=== PATIENT | female | born 1985 | race Two or more races ===

== ENCOUNTER 2016-04-19 09:08 | Emergency (ER) | payer OTHER ==
[~2016-04-19] VITALS: Ht 170.2 cm; Wt 77.1 kg
[2016-04-19 09:25] VITALS: BP 109/65
[2016-04-19 10:33] LABS: BILIRUBIN,URINE NEGATIVE (NEG); GLUCOSE,URINE NEGATIVE (NEG); NITRITE,URINE NEGATIVE (NEG); PROTEIN,URINE NEGATIVE (NEG-TRACE); UROBILINOGEN,URINE 0.2 mg/dL (0.2 mg/dL)
[2016-04-19 10:52] LABS: BACTERIA,URINE FEW /HPF (0-FEW); SQUAMOUS EPITHELIAL CELL,UR FEW /LPF; WBC,URINE >40 /HPF (0-4)
--- NOTE | 2016-04-19 11:01 | RAD ---
Obstetrical ultrasound, 04/19/2016: History: , vaginal bleeding Transabdominal and transvaginal scans were obtained. The uterus contains a gestational sac. It contains a pole demonstrating a crown-rump length of 1.8 cm. This suggests a gestational age of 8 weeks and 2 days. heart motion is not present. This is abnormal with a pole of this length and indicates a nonviable . No significant subchorionic hemorrhage is seen. The ovaries are visualized and are of normal size. No adnexal mass is evident. No free fluid is identified in the pelvis. IMPRESSION: Nonviable early intrauterine as described above.
--- NOTE | 2016-04-19 11:15 | PHYS DOC ---
Past Medical History Past Medical History: No Pertinent History Past Surgical History: Tonsillectomy, Other Additional Past Surgical Histo: LEFT HIP DISPLASIA Additional Information: 5 CIGARETTES PER DAY Alcohol Use: None Drug Use: None Adult General Chief Complaint Chief Complaint: VAGINAL BLEEDING HPI HPI Patient is a 30 year old female who presents with vaginal bleeding for 2 days. She states that the bleeding is less than usual menstrual cycle. She's had lower abdominal pressure and urinary frequency without dysuria. She's had a white, creamy vaginal discharge with an odor. She denies nausea, vomiting, diarrhea, constipation, fevers, or back pain. She is currently with LMP 01/20/16. She is Ab1. She does not have a primary care doctor or an OB. Review of Systems Review of Systems Constitutional: Denies fever or chills. [] GI: Denies nausea, vomiting, bloody stools or diarrhea. Lower abdominal pressure. : Denies dysuria, hematuria. Reports urinary frequency, vaginal discharge, and vaginal bleeding. Musculoskeletal: Denies back pain or joint pain. [] Integument: Denies rash or skin lesions. [] Neurologic: Denies headache, focal weakness or sensory changes. [] All systems reviewed and negative unless otherwise stated in the HPI. Allergies Allergies Allergies Coded Allergies Type Severity Reaction Last Updated Verified No Known Drug Allergies 04/19/16 No Physical Exam Physical Exam Constitutional: Well developed, well nourished, no acute distress, non-toxic appearance. [] HENT: Normocephalic, atraumatic, oropharynx moist. [] Eyes: PERRLA, EOMI, conjunctiva normal, no discharge. [] Neck: Normal range of motion, no tenderness, supple, no stridor. [] Cardiovascular: Heart rate regular rhythm, no murmur. [] Lungs & Thorax: Bilateral breath sounds clear to auscultation without wheezes, rales, or rhonchi. [] Abdomen: Bowel sounds normal, soft, left lower quadrant tenderness, no masses, no pulsatile masses. 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 Normal external genitalia. There is small amount of clear white discharge within the vagina. There is a small amount of blood within the vaginal vault without active bleeding. Cervical os is closed. There is no cervicitis or CMT. There is mild bilateral adnexal tenderness without masses. Skin: Warm, dry, no erythema, no rash. [] Back: No midline tenderness, no CVA tenderness. [] Extremities: No tenderness, ROM intact, no edema. Distal pulses equal bilaterally. [] Neurologic: Alert and oriented X 3, normal motor function, normal sensory function, no focal deficits noted. [] Psychologic: Affect normal, judgement normal, mood normal. [] Current Patient Data Vital Signs Vital Signs Date Time Temp Pulse Resp B/P Pulse Ox O2 Delivery O2 Flow Rate FiO2 04/19/16 09:25 98.9 81 16 109/65 98 Room Air 98.9 Lab Values Laboratory Tests Test 04/19/16 09:15 04/19/16 10:08 Urine Collection Type Unknown Urine Color Yellow Urine Clarity Clear Urine pH 7.0 Urine Specific [place] 1.020 Urine Protein Negativemg/dL (NEG-TRACE) Urine Glucose (UA) Negativemg/dL (NEG) Urine Ketones (Stick) Negativemg/dL (NEG) Urine Blood Negative (NEG) Urine Nitrite Negative (NEG) Urine Bilirubin Negative (NEG) Urine Urobilinogen Dipstick 0.2mg/dL (0.2 mg/dL) Urine Leukocyte Esterase Moderate (NEG) Urine RBC 1-2/HPF (0-2) Urine WBC >40/HPF (0-4) Urine Squamous Epithelial Cells Few/LPF Urine Bacteria Few/HPF (0-FEW) Urine Mucus Mod/LPF Maternal Serum HCG Beta Subunit 9367mIU/mL (0-6) H Microbiology 04/19/16 Wet Prep - Final, Complete WET PREP Final YEAST NONE SEEN TRICHOMONAS NONE SEEN CLUE CELLS NONE SEEN RBCS FEW SQUAMOUS EPS FEW EKG EKG [] Radiology/Procedures Radiology/Procedures REASON: vaginal bleeding, lmp 01/20/16 PROCEDURE: OB <14 WKS W/TV Obstetrical ultrasound, 04/19/2016: History: , vaginal bleeding Transabdominal and transvaginal scans were obtained. The uterus contains a gestational sac. It contains a pole demonstrating a crown-rump length of 1.8 cm. This suggests a gestational age of 8 weeks and 2 days. heart motion is not present. This is abnormal with a pole of this length and indicates a nonviable . No significant subchorionic hemorrhage is seen. The ovaries are visualized and are of normal size. No adnexal mass is evident. No free fluid is identified in the pelvis. IMPRESSION: Nonviable early intrauterine as described above. Course & Med Decision Making Course & Med Decision Making Pertinent Labs and Imaging studies reviewed. (See chart for details) Patient presents with vaginal bleeding during . On exam, there is no active bleeding and the os is closed. Ultrasound shows a pole with approximate age of 8 weeks without any cardiac activity. This is dermatology sales representative of a nonviable . Patient's hCG is 9367. Her blood type is A+. She does have a urinary tract infection. Wet mount is negative. She is discharged home with prescription for [place] and Keflex. She is educated that she will likely have increased bleeding and cramping. She is instructed to follow-up with OB for recheck of her beta Quant to ensure return to 0. Return precautions were discussed. She verbalizes understanding and agrees with plan. Dragon Disclaimer Dragon Disclaimer This electronic medical record was generated, in whole or in part, using a voice recognition dictation system. Departure Departure Impression: Primary Impression: Inevitable Additional Impressions: Nonviable UTI (urinary tract infection) Disposition: 01 HOME, SELF-CARE Condition: STABLE Referrals: SHASHI TRUJILLO Jr, MD Patient Instructions: Threatened Miscarriage, [id number], Urinary Tract Infection, [id number] Additional Instructions: Your ultrasound does not show any heartbeat for the fetus. This is likely a nonviable . You can expect to have increased bleeding with pelvic cramping as your body completes the miscarriage. Please follow-up with the OB doctor listed below. It is important to be sure that your hormone levels return to 0. Your urine does show infection. Please complete all the prescribed antibiotics. Please take the prescribed pain medication as needed. Do not drive or operate heavy machinery while taking pain medication. Return to the emergency department if you have heavy bleeding that requires you to change a pad every hour or if you have other new or concerning symptoms. Scripts Hydrocodone/Apap 5-325 ([place] 5-325 Tablet)1 Each Tablet1 Tab PO PRN Q6HRS PRN PAIN #20 TAB Prov:SHANE ANN 04/19/16 Cephalexin (Keflex)500 Mg Capsule1 Cap PO BID #14 CAP Prov:SHANE ANN 04/19/16 Problem Qualifiers Additional Impressions: UTI (urinary tract infection) Urinary tract infection type: acute cystitis Hematuria presence: without hematuria Qualified Code: N30.00 - Acute cystitis without hematuria SHANE ANN Apr 19, 2016 11:15
[2016-04-19] MEDS ORDERED: HYDR-971 PO (11:59)
[2016-04-19] MEDS ORDERED: CEPH-264 PO (11:59)
== END 2016-04-19 12:13 | disposition home or self-care (01) ==
LOC: ER 09:08
DX: O03.9 Complete or unspecified spontaneous abortion without complication (principal); O23.41 Unspecified infection of urinary tract in pregnancy, first trimester; Z3A.08 8 weeks gestation of pregnancy; O99.331 Smoking (tobacco) complicating pregnancy, first trimester; F17.210 Nicotine dependence, cigarettes, uncomplicated
CPT/HCPCS: 36415; 76801; 76817; 81001; 81025; 84702; 86900; 86901; 87086; 87491; 87591; 99285; Q0111

== ENCOUNTER 2016-04-21 18:04 | Emergency (ER) | payer OTHER ==
[~2016-04-21] VITALS: Ht 170.2 cm; Wt 77.1 kg
[~2016-04-21 18:04] MED LIST: CEPH-264 PO; HYDR-971 PO
[2016-04-21] MEDS ORDERED: FENTANYL PF 100 MCG/2 ML VIAL. IV ONE (19:45)
[2016-04-21] MEDS ORDERED: IV NORMAL SALINE 1000ML BAG 1,000 ML IV ONE (19:45)
--- NOTE | 2016-04-21 19:51 | PHYS DOC ---
Past Medical History Past Medical History: No Pertinent History Past Surgical History: Tonsillectomy, Other Additional Past Surgical Histo: LEFT HIP DISPLASIA Alcohol Use: None Drug Use: None Adult General Chief Complaint Chief Complaint: VAGINAL BLEEDING HPI HPI This is a 30-year-old female who has had continuing cramping suprapubic pain and bleeding for the last 3 days. Patient was seen in ER 3 days ago and had ultrasound that demonstrated no activity was diagnosed with a inevitable miscarriage. Patient was given 20 tablets of hydrocodone. Patient has been taking her hydrocodone as prescribed still is having significant pain and is passing large clots. This is her third . Patient has had 1 full-term viable delivery and a spontaneous miscarriage as well. She denies any pain or bleeding with her other miscarriage. She denies any significant nausea or vomiting. She denies any fever or chills. She denies any dysuria or hematuria. She rates her pain a 10/10 on the pain scale localized to the suprapubic area. She does believe she has been more dizzy and lightheaded for the last several days. Review of Systems Review of Systems Constitutional: Denies fever or chills [] Eyes: Denies change in visual acuity, redness, or eye pain [] HENT: Denies nasal congestion or sore throat [] Respiratory: Denies cough or shortness of breath [] Cardiovascular: No additional information not addressed in HPI [] GI: Has abdominal pain, nausea, vomiting, bloody stools or diarrhea [] : Denies dysuria or hematuria [] Musculoskeletal: Denies back pain or joint pain [] Integument: Denies rash or skin lesions [] Neurologic: Denies headache, focal weakness or sensory changes [] Endocrine: Denies polyuria or polydipsia [] Current Medications Current Medications Current Medications Medications (Trade) Dose Ordered Sig/Ehnna Start Time Stop Time Status Last Admin Dose Admin Fentanyl Citrate (Fentanyl 2ml Vial) 50 mcg 1X ONCE 04/21/16 19:45 04/21/16 19:46 DC 04/21/16 19:57 50 MCG Sodium Chloride (Iv Sodium Chloride 0.9% 1000ml Bag) 1,000 ml @ 1,000 mls/hr 1X ONCE 04/21/16 19:45 04/21/16 20:44 DC 04/21/16 19:57 1,000 MLS/HR Allergies Allergies Allergies Coded Allergies Type Severity Reaction Last Updated Verified No Known Drug Allergies 04/19/16 No Physical Exam Physical Exam Constitutional: Well developed, well nourished, mild distress, non-toxic appearance. [] HENT: Normocephalic, atraumatic, bilateral external ears normal, oropharynx moist, no oral exudates, nose normal. [] Eyes: PERRLA, EOMI, conjunctiva normal, no discharge. [] Neck: Normal range of motion, no tenderness, supple, no stridor. [] Cardiovascular:Heart rate regular rhythm, no murmur [] Lungs & Thorax: Bilateral breath sounds clear to auscultation [] Abdomen: Bowel sounds normal, soft, moderate suprapubic tenderness, no masses, no pulsatile masses. [] Pelvic exam: Gross clots are seen with no active bleeding. Patient was suctioned and had multiple clots removed from the vaginal vault without difficulty. Cervical os appeared slightly open. Skin: Warm, dry, no erythema, no rash. [] Back: No tenderness, no CVA tenderness. [] Extremities: No tenderness, no cyanosis, no clubbing, ROM intact, no edema. [] Neurologic: Alert and oriented X 3, normal motor function, normal sensory function, no focal deficits noted. [] Psychologic: Affect normal, judgement normal, mood normal. [] Current Patient Data Vital Signs Vital Signs Date Time Temp Pulse Resp B/P Pulse Ox O2 Delivery O2 Flow Rate FiO2 04/21/16 20:29 67 20 99/61 97 Room Air 04/21/16 19:04 98.0 98.0 Lab Values Laboratory Tests Test 04/21/16 19:50 White Blood Count 18.6x10^3/uL (4.0-11.0) H Red Blood Count 3.69x10^6/uL (3.50-5.40) Hemoglobin 12.2g/dL (12.0-15.5) Hematocrit 35.8% (36.0-47.0) L Mean Corpuscular Volume 97fL (79-100) Mean Corpuscular Hemoglobin 33pg (25-35) Mean Corpuscular Hemoglobin Concent 34g/dL (31-37) Red Cell Distribution Width 13.3% (11.5-14.5) Platelet Count 221x10^3/uL (140-400) Neutrophils (%) (Auto) 84% (31-73) H Lymphocytes (%) (Auto) 12% (24-48) L Monocytes (%) (Auto) 3% (0-9) Eosinophils (%) (Auto) 0% (0-3) Basophils (%) (Auto) 1% (0-3) Neutrophils # (Auto) 15.7x10^3uL (1.8-7.7) H Lymphocytes # (Auto) 2.1x10^3/uL (1.0-4.8) Monocytes # (Auto) 0.5x10^3/uL (0.0-1.1) Eosinophils # (Auto) 0.1x10^3/uL (0.0-0.7) Basophils # (Auto) 0.1x10^3/uL (0.0-0.2) Segmented Neutrophils % 79% (35-66) H Lymphocytes % 15% (24-48) L Atypical Lymphocytes % (Manual) 1% (0-0) H Monocytes % 3% (0-10) Eosinophils % 1% (0-5) Other Cells % 1% (0-0) H Platelet Estimate Adequate (ADEQUATE) Laboratory Tests 04/21/16 19:50 EKG EKG [] Radiology/Procedures Radiology/Procedures [] Course & Med Decision Making Course & Med Decision Making Pertinent Labs and Imaging studies reviewed. (See chart for details) This 30-year-old female who is actively miscarrying at a pelvic exam that revealed several gross clots a large amount of dry blood that was actively suctioned out without difficulty. Patient is given IV fentanyl for pain as well as an IV fluid bolus as well. Patient feels symptomatically that her after exam and fluids. The case was then discussed with the CONTENT PUBLISHER doctor, Dr. Granger, who stated the patient is to call into his clinic tomorrow to be reevaluated in next 1-2 days. Patient was given pain medication for the next several days. Her hemoglobin is stable today at 12.2. I instructed the patient to return to the ER she was any chest pain or shortness of breath. I did instruct her to return if her bleeding should worsen or if her pain should worsen or she develops any fever. She was very agreeable to this plan and will follow up with OBGYN as discussed. There is no indication to repeat an ultrasound today as an ultrasound several days ago demonstrated a nonviable intrauterine gestation. Dragon Disclaimer Dragon Disclaimer This electronic medical record was generated, in whole or in part, using a voice recognition dictation system. Departure Departure Impression: Primary Impression: Inevitable Additional Impression: Vaginal bleeding Disposition: HOME, SELF-CARE Admitting Physician: Other Condition: STABLE Referrals: NO PCP (PCP) Patient Instructions: Miscarriage, [id number] Additional Instructions: Please follow with the OB doctor, Dr. Granger, in the next 1-2 days for your symptoms. Continue to stay well hydrated and take your pain medication as prescribed. Return to the ER if you develop any worsening shortness of breath, worsening bleeding, or develop any fever or chills. Scripts Hydrocodone/Apap 5-325 ([place] 5-325 Tablet)1 Each Tablet1 Tab PO PRN Q6HRS PRN PAIN #8 TAB Prov:JEANNETTE MARINA DO 04/21/16 Problem Qualifiers JEANNETTE MARINA DO Apr 21, 2016 19:51
[2016-04-21 19:56] LABS: BASO # 0.1 x10^3/uL (0.0-0.2); BASO % 1 % (0-3); EOS % 0 % (0-3); HEMATOCRIT 35.8 % (36.0-47.0); HEMOGLOBIN 12.2 g/dL (12.0-15.5); LYMPH # 2.1 x10^3/uL (1.0-4.8); LYMPH % 12 % (24-48); MEAN CORPUSCULAR HEMOGLOBIN 33 pg (25-35); MEAN CORPUSCULAR HGB CONC 34 g/dL (31-37); MEAN CORPUSCULAR VOLUME 97 fL (79-100); MONO % 3 % (0-9); NEUT % 84 % (31-73); PLATELET COUNT 221 x10^3/uL (140-400); RED BLOOD COUNT 3.69 x10^6/uL (3.50-5.40); RED CELL DISTRIBUTION WIDTH 13.3 % (11.5-14.5); WHITE BLOOD COUNT 18.6 x10^3/uL (4.0-11.0)
[2016-04-21 20:29] VITALS: BP 99/61
[2016-04-21] MEDS ORDERED: HYDR-971 PO (21:15)
[2016-04-21 21:55] LABS: % EOS 1 % (0-5)
[2016-04-21 21:56] LABS: PLT ESTIMATE ADEQUATE (ADEQUATE)
[2016-04-24] MEDS ORDERED: OXYC-323 PO (11:35)
== END 2016-04-21 21:25 | disposition home or self-care (01) ==
LOC: ER 18:04
DX: O03.9 Complete or unspecified spontaneous abortion without complication (principal)
CPT/HCPCS: 36415; 85007; 85027; 96361; 96374; 99284; J3010; J7030

== ENCOUNTER 2016-04-23 03:38 | Observation (INO) | payer OTHER ==
[~2016-04-23] VITALS: Ht 170.2 cm; Wt 77.1 kg
[2016-04-23] VITALS (7 sets, daily range): BP systolic 91–110; BP diastolic 47–67
[2016-04-23] MEDS ORDERED: MORPHINE SULFATE 4 MG/ML DISP.SYRIN. IV/SQ PRN (04:00)
--- NOTE | 2016-04-23 04:08 | ED.ADGEN ---
Past Medical History Past Medical History: No Pertinent History Past Surgical History: Tonsillectomy, Other Additional Past Surgical Histo: LEFT HIP DISPLASIA Alcohol Use: None Drug Use: None Adult General Chief Complaint Chief Complaint: VAGINAL BLEEDING HPI HPI Patient is a 30 year old woman, , who was diagnosed with an inevitable miscarriage on 02/18, with an 8 week 2 day fetus noted on ultrasound at that time, who presents emergency department with persistent abdominal cramping and bleeding. Patient states that she's soaking 5 pads since midnight. She does state that she feels lightheaded, is expressing nausea, vomiting, with continued abdominal cramping and bleeding as stated. States that she has passed "tissue", along with blood and clots. No fevers or chills, no weakness numbness or tingling, no chest pain or shortness of breath, no pain with urination, no injuries. Patient states that she was instructed to follow-up with Dr. Light ' s office yesterday, but states that she was expressing too much pain to get herself to the office. She has been taking hydrocodone at home, and last took a dose at midnight. Patient appears to be acutely uncomfortable, is tearful. Review of Systems Review of Systems Constitutional: Denies fever or chills. [] Eyes: Denies change in visual acuity. [] HENT: Denies nasal congestion or sore throat. [] Respiratory: Denies cough or shortness of breath. [] Cardiovascular: Denies chest pain or edema. [] GI: Denies nausea, vomiting, bloody stools or diarrhea. [Abdominal cramping and vaginal bleeding. : Denies dysuria. [] Musculoskeletal: Denies back pain or joint pain. [] Integument: Denies rash. [] Neurologic: Denies headache, focal weakness or sensory changes. [] Endocrine: Denies polyuria or polydipsia. [] Lymphatic: Denies swollen glands. [] Psychiatric: Denies depression or anxiety. [] Current Medications Current Medications Current Medications Medications (Trade) Dose Ordered Sig/H[place] Start Time Stop Time Status Last Admin Dose Admin Acetaminophen (Tylenol) 650 mg PRN Q4HRS PRN 04/23/16 07:15 04/24/16 07:14 Dextrose 12.5 gm PRN Q15MIN PRN 04/23/16 06:15 Fentanyl Citrate 50 mcg 50 mcg PRN Q2HR PRN 04/23/16 07:15 04/24/16 07:14 Insulin Aspart (Novolog) 0-5 UNITS TIDWMEALS 04/23/16 08:00 Ketorolac Tromethamine (Toradol) 10 mg 1X ONCE 04/23/16 04:15 04/23/16 04:16 DC 04/23/16 04:13 10 MG Morphine Sulfate 4 mg PRN Q15MIN PRN 04/23/16 04:00 04/24/16 03:59 04/23/16 04:13 4 MG Ondansetron HCl (Zofran) 4 mg PRN Q8HRS PRN 04/23/16 07:15 04/24/16 07:14 Sodium Chloride (Iv Sodium Chloride 0.9% 1000ml Bag) 1,000 ml @ 125 mls/hr Q8H 04/23/16 07:13 04/24/16 07:12 Allergies Allergies Allergies Coded Allergies Type Severity Reaction Last Updated Verified No Known Drug Allergies 04/19/16 No Physical Exam Physical Exam Constitutional: Well developed, well nourished, moderate distress secondary to pain, non-toxic appearance. [] HENT: Normocephalic, atraumatic, bilateral external ears normal, oropharynx moist, no oral exudates, nose normal. [] Eyes: PERRLA, EOMI, conjunctiva normal, no discharge. [] Neck: Normal range of motion, no tenderness, supple, no stridor. [] Cardiovascular:Heart rate regular rhythm, no murmur, S1, S2, rubs or gallops. [] Lungs & Thorax: Bilateral breath sounds clear to auscultation, no wheezing, rhonchi, rales. No chest tenderness or crepitus. [] Abdomen: Bowel sounds normal, soft, patient with tenderness to palpation in the pelvic region, no masses, no pulsatile masses. [] Skin: Warm, dry, no erythema, no rash. [] Back: No tenderness, no CVA tenderness. [] Extremities: No tenderness, no cyanosis, no clubbing, ROM intact, no edema. [] Neurologic: Alert and oriented X 3, normal motor function, normal sensory function, no focal deficits noted. [] Psychologic: Affect normal, judgement normal, mood normal. [] Pelvic examination: Patient with active bleeding noted, bimanual examination reveals an open os, possibly 3 cm, with active bleeding and clots palpated, on speculum examination reveals open os with blood and clots in vault and in the uterus, unable to clear. Current Patient Data Vital Signs Vital Signs Date Time Temp Pulse Resp B/P Pulse Ox O2 Delivery O2 Flow Rate FiO2 04/23/16 06:30 70 26 92/52 98 Room Air 04/23/16 03:45 98 98.0 Lab Values Laboratory Tests Test 04/23/16 04:08 04/23/16 05:13 White Blood Count 15.7x10^3/uL (4.0-11.0) H Red Blood Count 3.38x10^6/uL (3.50-5.40) L Hemoglobin 11.0g/dL (12.0-15.5) L Hematocrit 32.2% (36.0-47.0) L Mean Corpuscular Volume 95fL (79-100) Mean Corpuscular Hemoglobin 33pg (25-35) Mean Corpuscular Hemoglobin Concent 34g/dL (31-37) Red Cell Distribution Width 13.3% (11.5-14.5) Platelet Count 220x10^3/uL (140-400) Neutrophils (%) (Auto) 86% (31-73) H Lymphocytes (%) (Auto) 12% (24-48) L Monocytes (%) (Auto) 2% (0-9) Eosinophils (%) (Auto) 0% (0-3) Basophils (%) (Auto) 0% (0-3) Neutrophils # (Auto) 13.5x10^3uL (1.8-7.7) H Lymphocytes # (Auto) 1.9x10^3/uL (1.0-4.8) Monocytes # (Auto) 0.3x10^3/uL (0.0-1.1) Eosinophils # (Auto) 0.0x10^3/uL (0.0-0.7) Basophils # (Auto) 0.0x10^3/uL (0.0-0.2) Segmented Neutrophils % 93% (35-66) H Lymphocytes % 7% (24-48) L Platelet Estimate Adequate (ADEQUATE) Sodium Level 142mmol/L (136-145) Potassium Level 3.7mmol/L (3.5-5.1) Chloride Level 102mmol/L (98-107) Carbon Dioxide Level 27mmol/L (21-32) Anion Gap 13 (6-14) Blood Urea Nitrogen 12mg/dL (7-20) Creatinine 0.8mg/dL (0.6-1.0) Estimated GFR (Cockcroft-Gault) 84.8 BUN/Creatinine Ratio 15 (6-20) Glucose Level 234mg/dL (70-99) H Calcium Level 9.2mg/dL (8.5-10.1) Total Bilirubin 0.4mg/dL (0.2-1.0) Aspartate Amino Transferase (AST) 17U/L (15-37) Alanine Aminotransferase (ALT) 26U/L (14-59) Alkaline Phosphatase 41U/L (46-116) L Total Protein 7.4g/dL (6.4-8.2) Albumin 3.9g/dL (3.4-5.0) Albumin/Globulin Ratio 1.1 (1.0-1.7) Urine Collection Type Unknown Urine Color Yellow Urine Clarity Clear Urine pH 8.0 Urine Specific [place] 1.025 Urine Protein Negativemg/dL (NEG-TRACE) Urine Glucose (UA) 500mg/dL (NEG) Urine Ketones (Stick) 40mg/dL (NEG) Urine Blood Large (NEG) Urine Nitrite Negative (NEG) Urine Bilirubin Negative (NEG) Urine Urobilinogen Dipstick 0.2mg/dL (0.2 mg/dL) Urine Leukocyte Esterase Negative (NEG) Urine RBC >40/HPF (0-2) Urine WBC Occ/HPF (0-4) Urine Squamous Epithelial Cells Mod/LPF Urine Bacteria 0/HPF (0-FEW) Urine Mucus Slight/LPF Laboratory Tests 04/23/16 04:08 Laboratory Tests 04/23/16 04:08 EKG EKG ECG: Sinus rhythm, heart rate 71 bpm, no ectopy. As interpreted by me. Radiology/Procedures Radiology/Procedures No indication for additional imaging at this time. [] Course & Med Decision Making Course & Med Decision Making Pertinent Labs and Imaging studies reviewed. (See chart for details) Patient's blood pressure initially 120s over 80s, heart rate in the 80s, very uncomfortable, and receiving morphine, patient was more comfortable and was able to proceed with pelvic examination, which revealed an approximate 3 cm dilated cervix, with large amounts of continued dark blood and clots, no evidence of bright red blood or active bleeding. Hemoglobin noted to be 11 today , previously was 12.2, patient with a glucose of 234, with noticed acidosis. She does have a history of diabetes, which is been managed with diet, she does not use any medications regular basis. Noted to have greater than 40 ketones in the urine. IV hydration initiated, along with type and screen. I did discuss findings as above with Dr. Granger SOFTBALL UMPIRE, who requests the patient be admitted to his service to the medical surgical floor, with plan for D&C. Patient was agreeable to this plan, as stated is resting more comfortably at this time. Blood pressure has trended downwards, from 120s over 80s to teens over 70s, is now 90s over 50s, heart rate remains in the 70s to 80s, patient remains comfortable and asymptomatic. I did speak with Dr. Granger to update him about this change, patient is receiving a second liter of fluid, has a type and screen as stated. No indications for transfusion at this time, however we will upgrade her to a monitored telemetry bed. She remains comfortable and stable in the emergency department, to be evaluated by Dr. Granger in the emergency department. Pressure is improved, 97/53, heart rate of 82, oxygen saturation 100 % room air, patient is resting comfortably, with dual IV access. Dragon Disclaimer Dragon Disclaimer This electronic medical record was generated, in whole or in part, using a voice recognition dictation system. Departure Impression: Primary Impression: Incomplete miscarriage Additional Impressions: Vaginal bleeding Hypotension Disposition: ADMITTED INPATIENT Admitting Physician: Other Condition: IMPROVED Problem Qualifiers Additional Impressions: Hypotension Hypotension type: unspecified hypotension type Qualified Code: I95.9 - Hypotension, unspecified SHANE GRAHAM DO Apr 23, 2016 04:08
[2016-04-23] MEDS ORDERED: ONDANSETRON PF 4 MG/2 ML VIAL. ONE ×2 (04:10→11:34)
[2016-04-23] MEDS ORDERED: KETOROLAC 15 MG/ML VIAL. IV ONE (04:15)
[2016-04-23] MEDS ORDERED: IV NORMAL SALINE 1000ML BAG 1,000 ML IV SCH ×2 (04:15→16:00)
[2016-04-23] MEDS ORDERED: ONDANSETRON PF 4 MG/2 ML VIAL. IV ONE (04:15)
[2016-04-23 05:03] LABS: BASO % 0 % (0-3); EOS % 0 % (0-3); HEMATOCRIT 32.2 % (36.0-47.0); LYMPH # 1.9 x10^3/uL (1.0-4.8); LYMPH % 12 % (24-48); MEAN CORPUSCULAR HEMOGLOBIN 33 pg (25-35); MEAN CORPUSCULAR HGB CONC 34 g/dL (31-37); MEAN CORPUSCULAR VOLUME 95 fL (79-100); MONO % 2 % (0-9); NEUT % 86 % (31-73); PLATELET COUNT 220 x10^3/uL (140-400); RED BLOOD COUNT 3.38 x10^6/uL (3.50-5.40); RED CELL DISTRIBUTION WIDTH 13.3 % (11.5-14.5); WHITE BLOOD COUNT 15.7 x10^3/uL (4.0-11.0)
[2016-04-23 05:11] LABS: CALCIUM 9.2 mg/dL (8.5-10.1); CREATININE 0.8 mg/dL (0.6-1.0); GFR 84.8; POTASSIUM 3.7 mmol/L (3.5-5.1)
[2016-04-23 05:16] LABS: ALBUMIN 3.9 g/dL (3.4-5.0); ALBUMIN/GLOBULIN RATIO 1.1 (1.0-1.7); TOTAL BILIRUBIN 0.4 mg/dL (0.2-1.0); TOTAL PROTEIN 7.4 g/dL (6.4-8.2)
[2016-04-23 05:21] LABS: BILIRUBIN,URINE NEGATIVE (NEG); GLUCOSE,URINE 500 mg/dL (NEG); NITRITE,URINE NEGATIVE (NEG); PROTEIN,URINE NEGATIVE (NEG-TRACE); UROBILINOGEN,URINE 0.2 mg/dL (0.2 mg/dL)
[2016-04-23 05:44] LABS: RBC,URINE >40 /HPF (0-2); WBC,URINE OCC /HPF (0-4)
[2016-04-23 05:45] LABS: BACTERIA,URINE 0 /HPF (0-FEW); SQUAMOUS EPITHELIAL CELL,UR MOD /LPF
[2016-04-23] MEDS ORDERED: IV NORMAL SALINE 1000ML BAG 1,000 ML IV ONE (06:15)
[2016-04-23] MEDS ORDERED: DEXTROSE 50% 25 GM / 50ML DISP.SYRIN. IV PRN ×2 (06:15→12:45)
[2016-04-23 06:55] LABS: PLT ESTIMATE ADEQUATE (ADEQUATE)
[2016-04-23] MEDS ORDERED: ONDANSETRON PF 4 MG/2 ML VIAL. IV PRN ×2 (07:15→12:45)
[2016-04-23] MEDS ORDERED: ACETAMINOPHEN 325 MG TABLET. PO PRN (07:15)
[2016-04-23] MEDS ORDERED: FENTANYL PF 100 MCG/2 ML VIAL. IV PRN ×4 (07:15→10:15)
[2016-04-23] MEDS: IV RINGERS,LACTATED 1000ML 1,000 ML IV SCH ×2 (10:04→18:04)
[2016-04-23] MEDS: IV NORMAL SALINE 1000ML BAG 1,000 ML IV SCH ×3 (10:06→21:42)
[2016-04-23] MEDS ORDERED: PROCHLORPERAZINE 10 MG/2 ML VIAL. IV PRN ×2 (10:15→12:45)
[2016-04-23] MEDS ORDERED: MORPHINE SULFATE 4 MG/ML DISP.SYRIN. IV PRN (10:15)
[2016-04-23] MEDS ORDERED: HYDROMORPHONE 2 MG/ML VIAL. IV PRN (10:15)
[2016-04-23] MEDS ORDERED: LIDOCAINE 1% 1 ML SYRINGE. ID PRN (10:15)
[2016-04-23] MEDS ORDERED: MIDAZOLAM HCL 2 MG/2 ML VIAL. IV PRN ×2 (10:15)
[2016-04-23] MEDS ORDERED: DIPHENHYDRAMINE 50 MG/ML VIAL IV PRN ×2 (10:15→12:45)
[2016-04-23] MEDS ORDERED: MEPERIDINE PF 25 MG/ML VIAL. IV PRN (10:15)
[2016-04-23] MEDS ORDERED: DOXY25TA38 PO (10:17)
[2016-04-23] MEDS ORDERED: VASOPRESSIN 20 UNIT/ML VIAL. ONE (10:26)
[2016-04-23] MEDS ORDERED: OXYTOCIN 10 UNIT/ML VIAL. ONE ×4 (10:26→12:24)
[2016-04-23] MEDS ORDERED: PROPOFOL 20 ML IV ONE (11:34)
[2016-04-23] MEDS ORDERED: MIDAZOLAM HCL 2 MG/2 ML VIAL. ONE (11:34)
[2016-04-23] MEDS ORDERED: DEXAMETHASONE SOD PHOS 20 MG/5 ML VIAL. ONE (11:34)
[2016-04-23] MEDS ORDERED: LIDOCAINE 2% 100 MG/5 ML DISP.SYRIN. ONE (11:34)
[2016-04-23] MEDS ORDERED: FENTANYL PF 250 MCG/5 ML VIAL. ONE (11:34)
[2016-04-23] MEDS ORDERED: CEFAZOLIN 1GM IVPB FOR OMNI 50 ML IV ONE (11:59)
[2016-04-23] MEDS: INSULIN ASPART 300 UNITS/3 ML INSULN.PEN SQ SCH ×2 (12:00→17:00)
[2016-04-23] MEDS ORDERED: CEFAZOLIN 1GM IVPB FOR OMNI. IV ONE (12:00)
[2016-04-23] MEDS ORDERED: CEFAZOLIN 1GM IVPB FOR OMNI 50 ML IV SCH (12:00)
[2016-04-23] MEDS ORDERED: PHENYLEPHRINE in 0.9% NACL PF 1 MG/10 ML DISP.SYRIN. IV ONE (12:21)
[2016-04-23] MEDS ORDERED: KETOROLAC 60 MG/2 ML SYRINGE FOR OR. ONE (12:23)
[2016-04-23] MEDS ORDERED: SEVOFLURANE 16 TO 30 MINUTES. IH ONE (12:33)
--- NOTE | 2016-04-23 12:34 | PDOC ---
BRIEF OPERATIVE NOTE Pre-Op Diagnosis Incomplete Post-Op Diagnosis Same Procedure Performed Suction D&C Surgeon Dr. Granger Anesthesia Type: General Blood Loss 100 ml Specimens Obtained POC Findings 10 wks size uterus with POC at cervical os Complications none Additional Remarks pt. SHASHI Saenz Jr, MD Apr 23, 2016 12:34
[2016-04-23] MEDS ORDERED: 0.9 % SODIUM CHLORIDE 10 ML DISP.SYRIN. IV PRN (12:45)
[2016-04-23] MEDS ORDERED: CALCIUM CARBONATE 500 MG TAB.CHEW PO PRN (12:45)
[2016-04-23] MEDS ORDERED: DIPHENHYDRAMINE HCL 25 MG CAPSULE PO PRN (12:45)
[2016-04-23] MEDS ORDERED: OXYCODONE/APAP 5/325 TABLET. PO PRN (12:45)
[2016-04-23] MEDS ORDERED: ZOLPIDEM 5 MG TABLET. PO PRN (12:45)
[2016-04-23] MEDS ORDERED: SIMETHICONE 80 MG TAB.CHEW PO PRN (12:45)
[2016-04-23] MEDS ORDERED: KETOROLAC TROMETHAMINE 30 MG/ML SYRINGE. IV PRN (12:45)
--- NOTE | 2016-04-23 13:52 | OP ---
DATE OF SURGERY: 04/23/2016 PREOPERATIVE DIAGNOSIS: Incomplete . POSTOPERATIVE DIAGNOSIS: Incomplete . PROCEDURE: Suction, dilation and curretage. SURGEON: Leon Granger M.D. ANESTHESIA: GETA. ESTIMATED BLOOD LOSS: 100 mL. COMPLICATIONS: None. FINDINGS: Products of conception at cervical os, about 10-week size uterus. SUMMARY: A 30-year-old 3, para 1, A1 at 10 weeks' gestation, who presented to Emergency Department over the last 2 days with vaginal bleeding. The patient was diagnosed with incomplete ; however, she continued to have heavy bleeding today with passage of more tissue requiring suction D and C. The patient was counseled on risks, benefits and expectations and voiced a clear understanding to proceed. DESCRIPTION OF PROCEDURE: The patient was taken to surgery suite and placed in dorsal lithotomy position. She was prepped with Betadine solution and draped in a sterile fashion. After adequate anesthesia, a weighted speculum was placed, single tooth tenaculum was placed on anterior lip of the cervix and there were products of conception at the cervical os, which were removed with ring forceps. Suction curette was utilized with a pressure of 60 cm of mercury pressure. The suction curette was rotated in a circular fashion removing blood clots and debris. Sharp curettage took place until a fine gritty surface was palpated circumferentially. The suction curette was passed once again to remove blood and blood products. Single tooth tenaculum was removed. Uterus palpated firm. The weighted speculum was removed. The patient tolerated procedure well and was taken to recovery room in stable condition. Sponge count correct x 3. LEON GRANGER MD DR: AILIN/vargas JOB#: [id number] / [id number]
[2016-04-23] MEDS: GABAPENTIN 300 MG CAPSULE. PO SCH ×2 (14:29→21:36)
[2016-04-23] MEDS ORDERED: PNEUMOCOCCAL VAX SCREEN BY RX. MC PRN (17:00)
[2016-04-23] MEDS ORDERED: PNEUMOC CONJ VACC 23-VALENT 0.5 ML VIAL. VAX IM ONE (17:00)
[2016-04-23] MEDS ORDERED: FLU VACC QUAD 2016-17 (36MOS+)/PF 0.5 ML SYRINGE. VAX IM ONE (17:00)
[2016-04-24 04:15] VITALS: BP 92/58
[2016-04-24 04:58] LABS: BASO % 0 % (0-3); EOS % 0 % (0-3); HEMATOCRIT 25.1 % (36.0-47.0); HEMOGLOBIN 8.4 g/dL (12.0-15.5); LYMPH # 3.5 x10^3/uL (1.0-4.8); LYMPH % 29 % (24-48); MEAN CORPUSCULAR HEMOGLOBIN 33 pg (25-35); MEAN CORPUSCULAR HGB CONC 33 g/dL (31-37); MEAN CORPUSCULAR VOLUME 98 fL (79-100); MONO % 4 % (0-9); NEUT % 66 % (31-73); PLATELET COUNT 164 x10^3/uL (140-400); RED BLOOD COUNT 2.57 x10^6/uL (3.50-5.40); RED CELL DISTRIBUTION WIDTH 13.6 % (11.5-14.5)
[2016-04-24] MEDS: GABAPENTIN 300 MG CAPSULE. PO SCH (05:26)
[2016-04-24] MEDS: INSULIN ASPART 300 UNITS/3 ML INSULN.PEN SQ SCH (08:00)
--- NOTE | 2016-04-24 11:18 | PDOC ---
SURGICAL PROGRESS NOTE Subjective Pt. feeling well. Pain controlled. Vaginal spotting. Counseled on findings in OR. Vital Signs Vital Signs Date Time Temp Pulse Resp B/P Pulse Ox O2 Delivery O2 Flow Rate FiO2 04/24/16 08:08 20 Room Air 04/24/16 04:15 98.1 70 92/58 99 98.1 04/23/16 12:37 10 I&O Intake and Output 04/24/16 07:00 Intake Total 1015 ml Output Total 50 ml Balance 965 ml Intake Oral 15 ml IV Total 1000 ml Blood Product 0 ml Output Urine Total 50 ml # Voids 5 PATIENT HAS A MCNALLY: No General: Alert, Oriented X3, Cooperative HEENT: Atraumatic Lungs: Clear to auscultation Heart: Regular rate Abdomen: Normal bowel sounds, Soft, No tenderness, No masses Psych/Mental Status: Mental status NL Labs Laboratory Tests Test 04/23/16 04:08 04/23/16 05:13 04/23/16 10:54 04/23/16 17:22 White Blood Count 15.7x10^3/uL (4.0-11.0) Red Blood Count 3.38x10^6/uL (3.50-5.40) Hemoglobin 11.0g/dL (12.0-15.5) Hematocrit 32.2% (36.0-47.0) Mean Corpuscular Volume 95fL (79-100) Mean Corpuscular Hemoglobin 33pg (25-35) Mean Corpuscular Hemoglobin Concent 34g/dL (31-37) Red Cell Distribution Width 13.3% (11.5-14.5) Platelet Count 220x10^3/uL (140-400) Neutrophils (%) (Auto) 86% (31-73) Lymphocytes (%) (Auto) 12% (24-48) Monocytes (%) (Auto) 2% (0-9) Eosinophils (%) (Auto) 0% (0-3) Basophils (%) (Auto) 0% (0-3) Neutrophils # (Auto) 13.5x10^3uL (1.8-7.7) Lymphocytes # (Auto) 1.9x10^3/uL (1.0-4.8) Monocytes # (Auto) 0.3x10^3/uL (0.0-1.1) Eosinophils # (Auto) 0.0x10^3/uL (0.0-0.7) Basophils # (Auto) 0.0x10^3/uL (0.0-0.2) Segmented Neutrophils % 93% (35-66) Lymphocytes % 7% (24-48) Platelet Estimate Adequate (ADEQUATE) Sodium Level 142mmol/L (136-145) Potassium Level 3.7mmol/L (3.5-5.1) Chloride Level 102mmol/L (98-107) Carbon Dioxide Level 27mmol/L (21-32) Anion Gap 13 (6-14) Blood Urea Nitrogen 12mg/dL (7-20) Creatinine 0.8mg/dL (0.6-1.0) Estimated GFR (Cockcroft-Gault) 84.8 BUN/Creatinine Ratio 15 (6-20) Glucose Level 234mg/dL (70-99) Calcium Level 9.2mg/dL (8.5-10.1) Total Bilirubin 0.4mg/dL (0.2-1.0) Aspartate Amino Transf (AST/SGOT) 17U/L (15-37) Alanine Aminotransferase (ALT/SGPT) 26U/L (14-59) Alkaline Phosphatase 41U/L (46-116) Total Protein 7.4g/dL (6.4-8.2) Albumin 3.9g/dL (3.4-5.0) Albumin/Globulin Ratio 1.1 (1.0-1.7) Urine Collection Type Unknown Urine Color Yellow Urine Clarity Clear Urine pH 8.0 Urine Specific [place] 1.025 Urine Protein Negativemg/dL (NEG-TRACE) Urine Glucose (UA) 500mg/dL (NEG) Urine Ketones (Stick) 40mg/dL (NEG) Urine Blood Large (NEG) Urine Nitrite Negative (NEG) Urine Bilirubin Negative (NEG) Urine Urobilinogen Dipstick 0.2mg/dL (0.2 mg/dL) Urine Leukocyte Esterase Negative (NEG) Urine RBC >40/HPF (0-2) Urine WBC Occ/HPF (0-4) Urine Squamous Epithelial Cells Mod/LPF Urine Bacteria 0/HPF (0-FEW) Urine Mucus Slight/LPF Glucose (Fingerstick) 115mg/dL (70-99) 186mg/dL (70-99) Test 04/24/16 04:00 04/24/16 08:21 White Blood Count 12.0x10^3/uL (4.0-11.0) Red Blood Count 2.57x10^6/uL (3.50-5.40) Hemoglobin 8.4g/dL (12.0-15.5) Hematocrit 25.1% (36.0-47.0) Mean Corpuscular Volume 98fL (79-100) Mean Corpuscular Hemoglobin 33pg (25-35) Mean Corpuscular Hemoglobin Concent 33g/dL (31-37) Red Cell Distribution Width 13.6% (11.5-14.5) Platelet Count 164x10^3/uL (140-400) Neutrophils (%) (Auto) 66% (31-73) Lymphocytes (%) (Auto) 29% (24-48) Monocytes (%) (Auto) 4% (0-9) Eosinophils (%) (Auto) 0% (0-3) Basophils (%) (Auto) 0% (0-3) Neutrophils # (Auto) 7.9x10^3uL (1.8-7.7) Lymphocytes # (Auto) 3.5x10^3/uL (1.0-4.8) Monocytes # (Auto) 0.5x10^3/uL (0.0-1.1) Eosinophils # (Auto) 0.0x10^3/uL (0.0-0.7) Basophils # (Auto) 0.0x10^3/uL (0.0-0.2) Glucose (Fingerstick) 120mg/dL (70-99) Laboratory Tests Test 04/23/16 17:22 04/24/16 04:00 04/24/16 08:21 Glucose (Fingerstick) 186mg/dL (70-99) 120mg/dL (70-99) White Blood Count 12.0x10^3/uL (4.0-11.0) Red Blood Count 2.57x10^6/uL (3.50-5.40) Hemoglobin 8.4g/dL (12.0-15.5) Hematocrit 25.1% (36.0-47.0) Mean Corpuscular Volume 98fL (79-100) Mean Corpuscular Hemoglobin 33pg (25-35) Mean Corpuscular Hemoglobin Concent 33g/dL (31-37) Red Cell Distribution Width 13.6% (11.5-14.5) Platelet Count 164x10^3/uL (140-400) Neutrophils (%) (Auto) 66% (31-73) Lymphocytes (%) (Auto) 29% (24-48) Monocytes (%) (Auto) 4% (0-9) Eosinophils (%) (Auto) 0% (0-3) Basophils (%) (Auto) 0% (0-3) Neutrophils # (Auto) 7.9x10^3uL (1.8-7.7) Lymphocytes # (Auto) 3.5x10^3/uL (1.0-4.8) Monocytes # (Auto) 0.5x10^3/uL (0.0-1.1) Eosinophils # (Auto) 0.0x10^3/uL (0.0-0.7) Basophils # (Auto) 0.0x10^3/uL (0.0-0.2) Problem List Problems Medical Problems: (1) Hypotension Status: Acute (2) Incomplete miscarriage Status: Acute (3) Vaginal bleeding Status: Acute Assessment/Plan A: POD#1 s/p Suction D&C P: D/c home. Problems: SHASHI TRUJILLO Jr, MD Apr 24, 2016 11:18
--- NOTE | 2016-04-24 11:20 | DISCH ---
DISCHARGE INSTRUCTIONS Condition on Discharge Condition on Discharge: Stable Activity After Discharge Activity Instructions for Disc: Activity as tolerated Lifting Instructions after Dis: No heavy lifting Driving Instructions after Dis: Do not drive today Diet after Discharge Diet after Discharge: Regular Contacting the DRCatie after DC Call your doctor for: Concerns you may have Follow-Up Follow up with: Dr. Granger in 2 weeks. SHASHI GRANGER Jr, MD Apr 24, 2016 11:20
[2016-04-24] MEDS ORDERED: OXYC-323 PO (11:35)
[2016-04-24 12:54] VITALS: BP 113/79
== END 2016-04-24 13:30 | disposition home or self-care (01) ==
LOC: ER 03:38 → 3 NORTH 06:06 → INTOOBSV 06:06
PROVIDERS: ADMIT Obstetrics & Gynecology; ATTEND Obstetrics & Gynecology
DX: O03.4 Incomplete spontaneous abortion without complication (principal); Z23 Encounter for immunization
CPT/HCPCS: 36415; 59812; 80053; 81001; 82947; 85007; 85027; 86850; 86900; 86901; 90471; 90472; 90686; 90732; 96374; 96375; 99285; G0378; J0690; J0780; J1100; J1815; J1885; J2250; J2270; J2370; J2405; J2590; J2704; J3010; J7030; 88305; 96361; G0379; J3490

== ENCOUNTER 2016-11-29 02:12 | Emergency (ER) | payer OTHER ==
[~2016-11-29] VITALS: Ht 167.6 cm; Wt 77.1 kg
[~2016-11-29 02:12] MED LIST changes: +DOXY25TA38 PO; +OXYC-323 PO
[2016-11-29] MEDS ORDERED: IV NORMAL SALINE 1000ML BAG 1,000 ML IV ONE (02:30)
[2016-11-29] MEDS ORDERED: ONDANSETRON PF 4 MG/2 ML VIAL. IV ONE (02:30)
[2016-11-29 02:44] VITALS: BP 114/70
[2016-11-29 02:50] LABS: BILIRUBIN,URINE NEGATIVE (NEG); GLUCOSE,URINE 500 mg/dL (NEG); NITRITE,URINE NEGATIVE (NEG); PH,URINE 7.5; PROTEIN,URINE NEGATIVE (NEG-TRACE); UROBILINOGEN,URINE 0.2 mg/dL (0.2 mg/dL)
[2016-11-29 02:58] LABS: RBC,URINE 0 /HPF (0-2)
[2016-11-29 02:59] LABS: BACTERIA,URINE 0 /HPF (0-FEW); SQUAMOUS EPITHELIAL CELL,UR FEW /LPF
[2016-11-29 03:16] LABS: BASO # 0.1 x10^3/uL (0.0-0.2); BASO % 1 % (0-3); EOS % 0 % (0-3); HEMATOCRIT 42.4 % (36.0-47.0); HEMOGLOBIN 14.7 g/dL (12.0-15.5); LYMPH % 16 % (24-48); MEAN CORPUSCULAR HEMOGLOBIN 33 pg (25-35); MEAN CORPUSCULAR HGB CONC 35 g/dL (31-37); MEAN CORPUSCULAR VOLUME 95 fL (79-100); MONO % 3 % (0-9); NEUT % 80 % (31-73); PLATELET COUNT 218 x10^3/uL (140-400); RED BLOOD COUNT 4.47 x10^6/uL (3.50-5.40); RED CELL DISTRIBUTION WIDTH 14.2 % (11.5-14.5); WHITE BLOOD COUNT 12.7 x10^3/uL (4.0-11.0)
[2016-11-29 03:27] LABS: CALCIUM 9.5 mg/dL (8.5-10.1); CREATININE 0.6 mg/dL (0.6-1.0); GFR 117.4
[2016-11-29] MEDS ORDERED: ONDA4TAB10 SL (03:30)
--- NOTE | 2016-11-29 03:30 | PHYS DOC ---
Past Medical History Past Medical History: No Pertinent History, Other Additional Past Medical Histor: diet controlled diabetes Past Surgical History: Tonsillectomy, Other Additional Past Surgical Histo: LEFT HIP DISPLASIA Alcohol Use: None Drug Use: Marijuana Social History Narrative: SMOKED MARIJUANA TODAY Adult General Chief Complaint Chief Complaint: VOMITING IN HPI HPI Patient is a 31 year old 4 para 1 female who is approximately 15 weeks by date per her report presents to the ER today secondary to nausea and vomiting. Patient reports that she seen her doctor for this prior and did not get any medications to assist her with her hyperemesis. Patient denies any other symptomatology at this time. Patient has any fevers shakes chills cough cold runny nose. Patient denies any vaginal discharge or vaginal bleeding. Patient has any abdominal pain aside midepigastric discomfort during episodes of emesis. Patient denies any hematemesis. Review of systems Constitutional: Denies fever or chills Eyes: Denies change in visual acuity, redness, or eye pain HENT: Denies nasal congestion or sore throat All other review systems are negative except as documented in the history of present illness portion. Physical exam Constitutional: Well developed, well nourished, no acute distress, non-toxic appearance. HENT: Normocephalic, atraumatic, bilateral external ears normal, oropharynx moist, no oral exudates, nose normal. Eyes: PERRLA, EOMI, conjunctiva normal, no discharge. Neck: Normal range of motion, no tenderness, supple, no stridor. Cardiovascular:Heart rate regular rhythm, Lungs & Thorax: Bilateral breath sounds clear to auscultation Abdomen: Bowel sounds normal, soft, no tenderness, no masses, no pulsatile masses. Skin: Warm, dry, no erythema, no rash. Back: No tenderness, no CVA tenderness. Extremities: No tenderness, no cyanosis, no clubbing, ROM intact, no edema. Neurologic: Alert and oriented X 3, normal motor function, normal sensory function, no focal deficits noted. Psychologic: Affect normal, judgement normal, mood normal. 31-year-old female with hyperemesis gravidarum. Patient was given IV fluids in the ED as well as Zofran with significant improvement in her symptoms. Patient is hemodynamically stable. Patient's CBC CMP and UA were all within normal limits. Patient be discharged home in stable condition for further outpatient evaluation by her primary care physician/OB doctor. Patient was given a prescription for Zofran to assist her with her symptoms. Patient instructed to return to the ER if she has any further problems or concerns. Current Medications Current Medications Current Medications Medications (Trade) Dose Ordered Sig/Henna Start Time Stop Time Status Last Admin Dose Admin Ondansetron HCl (Zofran) 4 mg 1X ONCE 11/29/16 02:30 11/29/16 02:31 DC 11/29/16 02:30 4 MG Sodium Chloride 1,000 ml @ 1,000 mls/hr 1X ONCE 11/29/16 02:30 11/29/16 03:29 DC 11/29/16 02:30 1,000 MLS/HR Allergies Allergies Allergies Coded Allergies Type Severity Reaction Last Updated Verified No Known Drug Allergies 04/19/16 No Physical Exam Physical Exam Laboratory Tests Test 11/29/16 02:15 11/29/16 02:40 11/29/16 03:10 Urine Collection Type Unknown Urine Color Yellow Urine Clarity Cloudy Urine pH 7.5 Urine Specific [place] 1.025 Urine Protein Negative mg/dL Urine Glucose (UA) 500 mg/dL Urine Ketones (Stick) 15 mg/dL Urine Blood Negative Urine Nitrite Negative Urine Bilirubin Negative Urine Urobilinogen Dipstick 0.2 mg/dL Urine Leukocyte Esterase Negative Urine RBC 0 /HPF Urine WBC 1-4 /HPF Urine Squamous Epithelial Cells Few /LPF Urine Amorphous Sediment Present /HPF Urine Bacteria 0 /HPF Urine Mucus Mod /LPF Bedside Urine HCG, Qualitative Hcg positive White Blood Count 12.7 x10^3/uL Red Blood Count 4.47 x10^6/uL Hemoglobin 14.7 g/dL Hematocrit 42.4 % Mean Corpuscular Volume 95 fL Mean Corpuscular Hemoglobin 33 pg Mean Corpuscular Hemoglobin Concent 35 g/dL Red Cell Distribution Width 14.2 % Platelet Count 218 x10^3/uL Neutrophils (%) (Auto) 80 % Lymphocytes (%) (Auto) 16 % Monocytes (%) (Auto) 3 % Eosinophils (%) (Auto) 0 % Basophils (%) (Auto) 1 % Neutrophils # (Auto) 10.2 x10^3uL Lymphocytes # (Auto) 2.0 x10^3/uL Monocytes # (Auto) 0.4 x10^3/uL Eosinophils # (Auto) 0.0 x10^3/uL Basophils # (Auto) 0.1 x10^3/uL Maternal Serum HCG Beta Subunit 78422 mIU/mL Sodium Level 137 mmol/L Potassium Level 4.0 mmol/L Chloride Level 99 mmol/L Carbon Dioxide Level 27 mmol/L Anion Gap 11 Blood Urea Nitrogen 8 mg/dL Creatinine 0.6 mg/dL Estimated GFR (Cockcroft-Gault) 117.4 BUN/Creatinine Ratio 13 Glucose Level 187 mg/dL Calcium Level 9.5 mg/dL Total Bilirubin 0.3 mg/dL Aspartate Amino Transf (AST/SGOT) 11 U/L Alanine Aminotransferase (ALT/SGPT) 15 U/L Alkaline Phosphatase 44 U/L Total Protein 7.8 g/dL Albumin 4.0 g/dL Albumin/Globulin Ratio 1.1 Current Medications Medications (Trade) Dose Ordered Sig/Henna Route PRN Reason Start Time Stop Time Status Last Admin Dose Admin Sodium Chloride 1,000 ml @ 1,000 mls/hr 1X ONCE IV 11/29/16 02:30 11/29/16 03:29 DC 11/29/16 02:30 1,000 MLS/HR Ondansetron HCl (Zofran) 4 mg 1X ONCE IV 11/29/16 02:30 11/29/16 02:31 DC 11/29/16 02:30 4 MG Current Patient Data Vital Signs Vital Signs Date Time Temp Pulse Resp B/P (MAP) Pulse Ox O2 Delivery O2 Flow Rate FiO2 11/29/16 02:44 98.2 73 16 114/70 (85) 96 Room Air 98.2 Lab Values Laboratory Tests Test 11/29/16 02:15 11/29/16 02:40 11/29/16 03:10 Urine Collection Type Unknown Urine Color Yellow Urine Clarity Cloudy Urine pH 7.5 Urine Specific [place] 1.025 Urine Protein Negative mg/dL (NEG-TRACE) Urine Glucose (UA) 500 mg/dL (NEG) Urine Ketones (Stick) 15 mg/dL (NEG) Urine Blood Negative (NEG) Urine Nitrite Negative (NEG) Urine Bilirubin Negative (NEG) Urine Urobilinogen Dipstick 0.2 mg/dL (0.2 mg/dL) Urine Leukocyte Esterase Negative (NEG) Urine RBC 0 /HPF (0-2) Urine WBC 1-4 /HPF (0-4) Urine Squamous Epithelial Cells Few /LPF Urine Amorphous Sediment Present /HPF Urine Bacteria 0 /HPF (0-FEW) Urine Mucus Mod /LPF POC Urine HCG, Qualitative Hcg positive (Negative) White Blood Count 12.7 x10^3/uL (4.0-11.0) H Red Blood Count 4.47 x10^6/uL (3.50-5.40) Hemoglobin 14.7 g/dL (12.0-15.5) Hematocrit 42.4 % (36.0-47.0) Mean Corpuscular Volume 95 fL (79-100) Mean Corpuscular Hemoglobin 33 pg (25-35) Mean Corpuscular Hemoglobin Concent 35 g/dL (31-37) Red Cell Distribution Width 14.2 % (11.5-14.5) Platelet Count 218 x10^3/uL (140-400) Neutrophils (%) (Auto) 80 % (31-73) H Lymphocytes (%) (Auto) 16 % (24-48) L Monocytes (%) (Auto) 3 % (0-9) Eosinophils (%) (Auto) 0 % (0-3) Basophils (%) (Auto) 1 % (0-3) Neutrophils # (Auto) 10.2 x10^3uL (1.8-7.7) H Lymphocytes # (Auto) 2.0 x10^3/uL (1.0-4.8) Monocytes # (Auto) 0.4 x10^3/uL (0.0-1.1) Eosinophils # (Auto) 0.0 x10^3/uL (0.0-0.7) Basophils # (Auto) 0.1 x10^3/uL (0.0-0.2) Maternal Serum HCG Beta Subunit 38484 mIU/mL (0-5) H Sodium Level 137 mmol/L (136-145) Potassium Level 4.0 mmol/L (3.5-5.1) Chloride Level 99 mmol/L (98-107) Carbon Dioxide Level 27 mmol/L (21-32) Anion Gap 11 (6-14) Blood Urea Nitrogen 8 mg/dL (7-20) Creatinine 0.6 mg/dL (0.6-1.0) Estimated GFR (Cockcroft-Gault) 117.4 BUN/Creatinine Ratio 13 (6-20) Glucose Level 187 mg/dL (70-99) H Calcium Level 9.5 mg/dL (8.5-10.1) Total Bilirubin 0.3 mg/dL (0.2-1.0) Aspartate Amino Transferase (AST) 11 U/L (15-37) L Alanine Aminotransferase (ALT) 15 U/L (14-59) Alkaline Phosphatase 44 U/L (46-116) L Total Protein 7.8 g/dL (6.4-8.2) Albumin 4.0 g/dL (3.4-5.0) Albumin/Globulin Ratio 1.1 (1.0-1.7) Laboratory Tests 11/29/16 03:10 Laboratory Tests 11/29/16 03:10 EKG EKG [] Radiology/Procedures Radiology/Procedures [] Course & Med Decision Making Course & Med Decision Making Pertinent Labs and Imaging studies reviewed. (See chart for details) [] Dragon Disclaimer Dragon Disclaimer This electronic medical record was generated, in whole or in part, using a voice recognition dictation system. Departure Departure Impression: Primary Impression: Hyperemesis gravidarum Disposition: 01 HOME, SELF-CARE Condition: IMPROVED Referrals: NO PCP (PCP) Patient Instructions: Diet - Hyperemesis Gravidarum, Hyperemesis Gravidarum Scripts Ondansetron (ZOFRAN ODT) 4 Mg Tab.rapdis 1 TAB SL Q6HRS Y for NAUSEA, #20 TAB Prov: KELSEY CHAVEZ MD 11/29/16 KELSEY CHAVEZ MD Nov 29, 2016 03:30
[2016-11-29 03:32] LABS: ALBUMIN/GLOBULIN RATIO 1.1 (1.0-1.7); TOTAL BILIRUBIN 0.3 mg/dL (0.2-1.0); TOTAL PROTEIN 7.8 g/dL (6.4-8.2)
== END 2016-11-29 04:35 | disposition home or self-care (01) ==
LOC: ER 02:12
DX: O21.0 Mild hyperemesis gravidarum (principal); Z3A.15 15 weeks gestation of pregnancy
CPT/HCPCS: 36415; 80053; 81001; 81025; 84702; 85025; 96361; 96374; 99284; J2405; J7030

== ENCOUNTER → 2017-02-07 | Outpatient (CLI) | payer OTHER ==
[~2017-02-07] MED LIST changes: +ONDA4TAB10 SL
--- NOTE | 2017-02-07 09:45 | RAD ---
Examination: Obstetric ultrasound greater than 14 weeks History: History of uterine size discrepancy Comparison: None available. Findings: The cervical length measures 4.1 cm. Single living intrauterine identified with heart rate of 133 bpm. movement, cardiac activity, four-chamber heart, cord insertion, fluid in the bladder, stomach, kidneys, spine, brain are visualized. position is cephalic. Amniotic fluid is normal. Placenta is in anterior wall. Placenta grade is grade 1. The biparietal diameter measures 5.4 cm corresponding to 22 weeks and 4 days. Head circumference measures 20.4 cm corresponding to 22 weeks and 4 days. The abdominal circumference measures 16.5 cm corresponding to 21 weeks and 4 days. Femur length measures 3.6 cm corresponding to 21 weeks and 4 days. Cephalic index 83.8. Head circumference to abdominal circumference 1.23. Femur length to biparietal diameter 66.6. Femur length to head circumference 17.8. Femur length abdominal circumference 21.9. LMP 09/09/2016. Clinical age is 21 weeks and 4 days with estimated date of delivery by clinical age of 406/16/2017. Ultrasound age is 22 weeks and 1 day with the expected delivery by ultrasound 06/12/2017. Estimated weight 444 g +/- 66 g. Impression: 1. Single living intrauterine identified with heart rate of 133 bpm. Per this ultrasound, the fetus age is 22 weeks and 1 day with estimated date of delivery 06/12/2017 by this ultrasound.
== END | disposition home or self-care (01) ==
LOC: US 06:55
PROVIDERS: ATTEND Obstetrics & Gynecology
DX: O26.842 Uterine size-date discrepancy, second trimester (principal); Z3A.22 22 weeks gestation of pregnancy
CPT/HCPCS: 76805

== ENCOUNTER → 2017-04-08 | Outpatient (CLI) | payer OTHER | END | disposition home or self-care (01) | LOC: US 07:48 | DX: Z34.93 Encounter for supervision of normal pregnancy, unspecified, third trimester (principal); Z3A.32 32 weeks gestation of pregnancy | CPT/HCPCS: 76805 ==

== ENCOUNTER 2017-04-13 14:47 | Observation (INO) | payer OTHER ==
[2017-04-13] MEDS ORDERED: IV RINGERS,LACTATED 1000ML 1,000 ML IV ×2 (16:31)
[2017-04-13 16:40] LABS: BILIRUBIN,URINE NEGATIVE (NEG); CLARITY,URINE CLEAR; COLOR,URINE YELLOW; GLUCOSE,URINE >=1000 mg/dL (NEG); NITRITE,URINE NEGATIVE (NEG); PH,URINE 6.5; PROTEIN,URINE NEGATIVE (NEG-TRACE); UROBILINOGEN,URINE 0.2 mg/dL (0.2 mg/dL)
[2017-04-13 16:55] LABS: BACTERIA,URINE FEW /HPF (0-FEW); RBC,URINE 0 /HPF (0-2); SQUAMOUS EPITHELIAL CELL,UR FEW /LPF; WBC,URINE RARE /HPF (0-4)
[2017-04-13 17:09] LABS: POC GLUCOSE 156 mg/dL (70-99)
== END 2017-04-13 18:00 | disposition home or self-care (01) ==
LOC: 3 SO LND 14:47
DX: O26.893 Other specified pregnancy related conditions, third trimester (principal); R10.9 Unspecified abdominal pain; Z3A.30 30 weeks gestation of pregnancy
CPT/HCPCS: 81001; 82962; G0378; G0379

== ENCOUNTER → 2017-04-19 | Outpatient (CLI) | payer OTHER ==
[2017-04-19 09:18] LABS: GLUCOSE 134 mg/dL (70-99)
== END | disposition home or self-care (01) ==
LOC: LAB 08:53
DX: O09.93 Supervision of high risk pregnancy, unspecified, third trimester (principal); Z3A.32 32 weeks gestation of pregnancy
CPT/HCPCS: 36415; 82947

== ENCOUNTER 2017-05-05 20:22 | Observation (INO) | payer OTHER ==
[2017-05-05 21:49] LABS: BILIRUBIN,URINE NEGATIVE (NEG); CLARITY,URINE CLEAR; COLOR,URINE YELLOW; GLUCOSE,URINE 100 mg/dL (NEG); NITRITE,URINE NEGATIVE (NEG); PH,URINE 6.5; PROTEIN,URINE 30 mg/dL (NEG-TRACE)
[2017-05-05 21:55] LABS: BARBITURATES NEG (NEG); BENZODIAZEPINES NEG (NEG); CANNABINOIDS POS (NEG); COCAINE NEG (NEG); METHADONE NEG (NEG); OPIATES NEG (NEG); PHENCYCLIDINE NEG (NEG)
[2017-05-05 22:03] LABS: BACTERIA,URINE 0 /HPF (0-FEW); RBC,URINE OCC /HPF (0-2); SQUAMOUS EPITHELIAL CELL,UR MOD /LPF; WBC,URINE OCC /HPF (0-4)
[2017-05-05 22:19] LABS: AMPHETAMINE/METHAMPHETAMINE NEG (NEG); ETHANOL, URINE NEG (NEG)
[2017-05-05 22:34] LABS: POC GLUCOSE 72 mg/dL (70-99)
[2017-05-05] MEDS: hydrOXYzine PAMOATE 25 MG CAPSULE PO (22:47)
[2017-05-05] MEDS: IV RINGERS,LACTATED 1000ML 1,000 ML IV (22:47)
== END 2017-05-05 23:45 | disposition home or self-care (01) ==
LOC: 3 SO LND 20:22
DX: O26.893 Other specified pregnancy related conditions, third trimester (principal); R10.30 Lower abdominal pain, unspecified; Z3A.34 34 weeks gestation of pregnancy
CPT/HCPCS: 80307; 81001; 82962; 96360; G0378; G0379; J7120; Q0177

== ENCOUNTER 2017-05-11 11:31 | Observation (INO) | payer OTHER | END 2017-05-11 12:55 | disposition home or self-care (01) | LOC: 3 SO LND 11:31 | DX: Z34.93 Encounter for supervision of normal pregnancy, unspecified, third trimester (principal); Z3A.34 34 weeks gestation of pregnancy | CPT/HCPCS: 59025; G0378; G0379 ==

== ENCOUNTER → 2017-05-20 | Outpatient (CLI) | payer OTHER | END | disposition home or self-care (01) | LOC: US 10:46 | DX: O26.843 Uterine size-date discrepancy, third trimester (principal); O24.419 Gestational diabetes mellitus in pregnancy, unspecified control; Z3A.39 39 weeks gestation of pregnancy | CPT/HCPCS: 76815 ==

== ENCOUNTER 2017-08-04 06:29 | Day surgery (SDC) | payer OTHER ==
[2017-08-04 06:54] LABS: NEG OBC UR NEG; POS OBC UR POS; U PREG PATIENT NEGATIVE (NEG)
[2017-08-04] MEDS ORDERED: LIDOCAINE 1% PF 2 ML VIAL. ID (07:00)
[2017-08-04] MEDS ORDERED: ONDANSETRON PF 4 MG/2 ML VIAL. IV (07:00)
[2017-08-04] MEDS ORDERED: fentaNYL PF VIAL 100 MCG/2 ML VIAL IV (07:00)
[2017-08-04] MEDS ORDERED: MORPHINE SULFATE 4 MG/ML DISP.SYRIN. IV (07:00)
[2017-08-04] MEDS ORDERED: PROCHLORPERAZINE 10 MG/2 ML VIAL. IV (07:00)
[2017-08-04] MEDS: IV RINGERS,LACTATED 1000ML 1,000 ML IV (07:11)
[2017-08-04] MEDS ORDERED: fentaNYL PF VIAL 100 MCG/2 ML VIAL ×2 (07:39→08:45)
[2017-08-04] MEDS ORDERED: LIDOCAINE 2% PF Vial for OR 5 ML VIAL. (07:39)
[2017-08-04] MEDS ORDERED: PROPOFOL 20 ML IV (07:39)
[2017-08-04] MEDS ORDERED: ONDANSETRON PF 4 MG/2 ML VIAL. (07:39)
[2017-08-04] MEDS ORDERED: DEXAMETHASONE SOD PHOS 20 MG/5 ML VIAL. (07:39)
[2017-08-04] MEDS ORDERED: MIDAZOLAM HCL/PF 2 MG/2 ML VIAL. (07:39)
[2017-08-04] MEDS ORDERED: ROCURONIUM 50 MG/5 ML VIAL. (07:40)
[2017-08-04] MEDS ORDERED: FAMOTIDINE 20 MG/2 ML VIAL (08:12)
[2017-08-04] MEDS ORDERED: KETOROLAC 30 MG/ML INJ FOR OR. INJ (08:12)
[2017-08-04] MEDS ORDERED: NEOSTIGMINE METHYLSULFATE 5 MG/5 ML SYRINGE. (08:16)
[2017-08-04] MEDS ORDERED: GLYCOPYRROLATE 1 MG/5 ML VIAL. (08:17)
[2017-08-04] MEDS: BUPIVACAINE-EPI 0.25%-1:200000 50 ML VIAL. (08:20)
[2017-08-04] MEDS: fentaNYL PF VIAL 100 MCG/2 ML VIAL IV ×4 (08:45→09:11)
[2017-08-04] MEDS ORDERED: oxyCODONE/APAP 5/325 1 TAB TABLET (09:22)
[2017-08-04] MEDS: oxyCODONE/APAP 5/325 1 TAB TABLET PO (09:23)
== END 2017-08-04 10:02 | disposition home or self-care (01) ==
LOC: SURG 06:29
DX: Z30.2 Encounter for sterilization (principal); E66.9 Obesity, unspecified; K21.9 Gastro-esophageal reflux disease without esophagitis; E11.9 Type 2 diabetes mellitus without complications; F31.9 Bipolar disorder, unspecified; F17.210 Nicotine dependence, cigarettes, uncomplicated; Z72.89 Other problems related to lifestyle; Z87.440 Personal history of urinary (tract) infections; Z98.890 Other specified postprocedural states
CPT/HCPCS: 58671; 81025; J1100; J1885; J2250; J2405; J2704; J2710; J3010; J3490; S0028